=== PATIENT | male | born 1975 | race Caucasian/White ===

== ENCOUNTER 2024-12-14 08:18 | Emergency (ER) | payer OTHER, SELFPAY ==
[2024-12-14 08:20] VITALS: BP 150/89
[2024-12-14 08:35] VITALS: BP 157/104
[2024-12-14 08:36] VITALS: BMI 31.6
[2024-12-14 08:37] VITALS: BP 157/104
--- NOTE | 2024-12-14 08:38 | ED.GENMED ---
History of Present Illness
General
Chief Complaint: Cardiac Symptoms
Source: patient
Exam Limitations: none
Time Seen by Provider: 12/14/24 08:29
History of Present Illness
History of Present Illness:
49-year-old male otherwise healthy presents with intermittent fluttering sensation and discomfort in his chest over the past several days. The sensation lasts seconds and goes away. No associated shortness of breath. There is no pleuritic pain.
He denies any recent fever cough or vomiting. This can happen randomly. He notices it more when he is at rest. He has been working out and has not felt any of the symptoms while working out. He has been trying Prilosec over the past 10 days
given reflux symptoms. That seems to have helped his reflux symptoms. No other complaints at this time
Past History
Past History
ED Past Medical History: Other (Meckel's divertic, Covid)
Social History
Tobacco: Non-smoker
Phy Exam
Physical Exam
Physical Exam:
General: Well-appearing male no acute respiratory distress
HEENT: Normocephalic atraumatic
Heart: Regular rate and rhythm
Lungs: Clear no wheeze
Abdomen is soft nontender nondistended
Extremities: No cyanosis or edema
Course
Orders/Labs/Results
Orders:
Orders
12/14/24 08:23
EKG [Electrocardiogram (*1)] Urgent
Reason for Study: Chest Pain
EKG- Treatment ONCE
12/14/24 08:39
Complete Blood Count/With Diff Urgent
Comprehensive Metabolic Panel Urgent
TSH Reflex To Free T4 Urgent
Troponin I Urgent
Abnormal Lab Results
12/14/24
08:39
WBC 3.9 L 10^3/uL
(4.8-10.8)
Monocytes % 12.4 H %
(1.7-9.3)
12/14/24 08:39
12/14/24 08:39
Vital Signs
Initial and Last Documented VS:
Initial Vital Signs
Temp Pulse Resp BP Pulse Ox
98.4 F 70 18 150/89 98
12/14/24 08:20 12/14/24 08:20 12/14/24 08:20 12/14/24 08:20 12/14/24 08:20
Last Documented Vital Signs
Temp Pulse Resp BP Pulse Ox
98.4 F 67 14 134/85 98
12/14/24 08:20 12/14/24 09:00 12/14/24 09:00 12/14/24 09:00 12/14/24 09:00
MDM/Problems Addressed
Differential Diagnosis Includes:
Occasional chest discomfort and fluttering sensation in his chest. Consider palpitations with PVC versus electrolyte abnormality versus arrhythmia. Given chest discomfort he describes will check for ACS with troponin. He is not hypoxic nor is he
tachycardic he recently flew to [place] but this was only a 2-hour flight. The pain is not constant nor is it pleuritic do not suspect PE
EKG through triage shows sinus rhythm with a rate of 73 no ischemic changes
*Critical Care Note
Total Time (30-74mins, 75-104mins- exclusive of procedures): Not Applicable
Update Note
Update Note:
Labs reviewed without significant finding no arrhythmias or PVCs on monitor. Patient has not felt any flutter since he has been here. No indication for admission. Do not suspect ACS. Low likelihood of PE given lack of extended travel, exogenous
hormones, signs suggestive of DVT, he is not hypoxic nor is he tachycardic. He currently has no symptoms.
ED Attending Note
-
Portions of this chart may have been created with voice recognition software.� Occasional wrong word or��sound alike� substitutions may have occurred due to the inherent limitations of voice recognition software.
Discharge Plan
Departure
Patient Disposition: Home (Routine Discharge)
Date of Disposition: 12/14/24
Time of Disposition: 10:29
Patient with high blood pressure during this ER visit?: No
Discharge Problem:
Heart palpitations
Instructions: Heart Palpitations
Referrals:
Sinan Sharif MD [Family Provider] -
Activity Restrictions/Additional Instructions:
Rest. Stay hydrated. Avoid excessive caffeine or alcohol. Return if worse otherwise follow-up with your doctor
Interventions
Interventions:
*Risk Screen - Suicide Last Done: 12/14/24 08:20
*General Assessment Last Done: 12/14/24 08:20
*Neglect/Abuse Screening Last Done: 12/14/24 08:20
*ED COVID-19 Vaccine History Last Done: 12/14/24 08:36
ED- Pulmonary Assessment Last Done: 12/14/24 09:21
ED- Cardiac Assessment Last Done: 12/14/24 09:21
Discharge Date and Time
Print Language: URDU
[2024-12-14 08:47] LABS: % Basophils 0.5 % (0-2); % Eosinophils 0.8 % (0-6); % Lymphocytes 40.3 % (20.5-51.1); % Monocytes 12.4 % (1.7-9.3); Absolute Lymphocytes 1.6 10^3/uL (1.2-3.4); Absolute Monocytes 0.5 10^3/uL (0.1-0.6); Absolute Neutrophils 1.8 10^3/uL (1.4-6.5); Mean Corp Hgb Conc. 35.7 g/dL (33.0-37.0); Mean Corpuscular Hgb 30.2 pg (27.0-31.0); Mean Corpuscular Volume 84.5 fL (80.0-94.0); Mean Platelet Volume 9.7 fL (7.4-10.4); Nucleated Red Blood Cells % 0 % (-); Platelet Count 167 10^3/uL (130-400); Red Blood Cell Count 4.97 10^6/uL (4.70-6.10); Red Cell Dist. Width 12.9 % (11.5-14.5); White Blood Cell Count 3.9 10^3/uL (4.8-10.8)
[2024-12-14 09:00] VITALS: BP 134/85
[2024-12-14 09:03] LABS: ALT (SGPT) 34 U/L (0-50); AST (SGOT) 37 U/L (17-59); Albumin 4.9 g/dl (3.5-5.0); Alkaline Phosphatase 59 U/L (38-126); Blood Urea Nitrogen 18 mg/dl (9-20); Carbon Dioxide 29 mmol/L (22-30); Chloride 101 mmol/L (98-107); Estimated Creatinine Clearance 88 ml/min; Glucose 94 mg/dl (70-99); Potassium 4.2 mmol/L (3.5-5.1); Sodium 138 mmol/L (135-145); Total Bilirubin 1.1 mg/dl (0.2-1.3); Total Protein 8.2 g/dl (6.3-8.2); eGFR > 60.00
[2024-12-14 09:13] LABS: Troponin I < 0.012 ng/ml
[2024-12-14 09:33] LABS: TSH Reflex To Free T4 2.55 uIU/ml (0.47-4.68)
== END 2024-12-14 10:44 | disposition home or self-care (01) ==
LOC: EMR 08:18
PROVIDERS: Physician Assistant; EMERGENCY PHYSICIAN Emergency Medicine; FAMILY PHYSICIAN Internal Medicine
DX: R00.2 Palpitations (principal); Z86.16 Personal history of COVID-19
CPT/HCPCS: 99284; 80053; 84443; 84484; 85025; 93005